=== PATIENT | male | born 1980 | race Caucasian/White ===

== ENCOUNTER 2018-11-20 16:46 | Emergency (ER) | payer SELFPAY ==
[~2018-11-20] VITALS: Ht 172.7 cm; Wt 113.4 kg
[2018-11-20] MEDS ORDERED: ONDA4ODT MM (18:26)
[2018-11-20] MEDS ORDERED: IBUP800 PO (18:26)
[2018-11-20] MEDS ORDERED: CEPH500 PO (18:26)
[2018-11-20] MEDS ORDERED: Percocet 5-3251 EACH PO (18:26)
== END 2018-11-20 18:40 | disposition home or self-care (01) ==
LOC: ER 16:46
DX: S62.511A Displaced fracture of proximal phalanx of right thumb, initial encounter for closed fracture (principal); W31.2XXA Contact with powered woodworking and forming machines, initial encounter
CPT/HCPCS: 12002; 73140; 90471; 90714; 96365-59; 99283-25; J0690

== ENCOUNTER 2021-04-28 16:04 | Emergency (ER) | payer BC ==
[~2021-04-28] VITALS: Ht 172.7 cm; Wt 117.9 kg
[~2021-04-28 16:04] MED LIST: CEPH500 PO; IBUP800 PO; ONDA4ODT MM; Percocet 5-3251 EACH PO
[2021-04-30] MEDS ORDERED: ALBU90OI INH (15:25)
[2021-04-30] MEDS ORDERED: DEXA2 PO (15:25)
== END 2021-04-28 16:43 | disposition home or self-care (01) ==
LOC: ER 16:04
DX: U07.1 COVID-19 (principal); F17.200 Nicotine dependence, unspecified, uncomplicated
CPT/HCPCS: 96372; 99282-25; J1885